=== PATIENT | male | born 2000 | race Asian ===

== ENCOUNTER 2023-12-26 10:29 | Emergency (ER) | payer MEDICAID, SELFPAY ==
[2023-12-26 10:30] VITALS: BMI 25.4
[2023-12-26 10:47] VITALS: BP 159/94; PULSE 91; RESP 18; TEMP 36.7; O2SAT 96; BMI 26.2
--- NOTE | 2023-12-26 10:47 | PD.EDRME ---
Rapid Medical Screening Exam RME Arrival date/time: 12/26/23 10:29 22-year-old male presents to the emergency department with complaint of generalized bodyaches nausea and vomiting abdominal burning ongoing x 1 week Chief Complaint: Abdominal Pain Time Seen by Provider: 12/26/23 10:32
[2023-12-26] MEDS: ONDANSETRON ODT 4 MG TABRAP PO (10:52)
[2023-12-26] MEDS: ACETAMINOPHEN 500 MG TABLET 1000 MG PO (10:53)
[2023-12-26] MEDS: FAMOTIDINE 20 MG TABLET PO (10:53)
[2023-12-26 11:33] LABS: Basophils # (Auto) 0.1 Thou/mm3 (0.0-0.2); Basophils % (Auto) 1 % (0-2.5); Eosinophils % (Auto) 0 % (0-10); Hematocrit 49.2 % (41.0-53.0); Hemoglobin 17.6 g/dL (13.5-16.0); Immature Granulocytes % (Auto) 2 % (0-0); Immature Granulocytes Auto 0.15 Thou/mm3 (0.00-0.00); Lymphocytes # (Auto) 1.7 Thou/mm3 (1.0-4.8); Lymphocytes % (Auto) 24 % (10-50); Mean Corpuscular HGB Conc 35.8 g/dl (31.0-37.0); Mean Corpuscular Hemoglobin 31.2 pg (25.0-35.0); Mean Corpuscular Volume 87 fL (80-100); Monocytes # (Auto) 0.8 Thou/mm3 (0.0-0.8); Monocytes % (Auto) 11 % (0-12); Neutrophils # (Auto) 4.2 Thou/mm3 (1.8-7.7); Neutrophils % (Auto) 61 % (37-80); Nucleated Red Blood Cell % 0 /100 WBC (0); Platelet Count 381 Thou/mm3 (140-440); RDW Standard Deviation 38.5 fL (35.1-43.9); Red Blood Count 5.65 Miln/mm3 (4.50-5.90); White Blood Count 6.9 Thou/mm3 (3.8-10.6)
[2023-12-26 11:52] LABS: Alanine Aminotransferase 32 U/L (10-49); Albumin, Serum 5.5 gm/dL (3.5-5.0); Albumin/Globulin Ratio 1.8 (1.2-2.2); Alkaline Phosphatase 75 U/L (46-116); Anion Gap 7 (7-16); Aspartate Amino Transferase 26 U/L (0-34); BUN/Creatinine Ratio 10 Ratio (12-20); Bilirubin,Total 1.6 mg/dL (0.3-1.2); Blood Urea Nitrogen 12 mg/dL (9-23); Calcium 10.6 mg/dL (8.3-10.6); Calcium (Corrected) 10.6 mg/dL (8.5-10.1); Carbon Dioxide 30.2 mMol/L (20.0-31.0); Chloride 98 mMol/L (98-107); Creatinine (Component) 1.2 mg/dL (0.6-1.3); Estimated Creatinine Clearance 104.2 mL/min (>60); Globulin 3.1 gm/dL (2.3-3.5); Glucose 111 mg/dL (74-106); Lipase 46 U/L (12-53); Osmolality,Calculated 270 (275-295); Potassium 3.9 mMol/L (3.4-5.1); Sodium 135 mMol/L (136-145); Total Protein 8.6 gm/dL (5.7-8.2); eGFR > 60 See Note
[2023-12-26 11:53] LABS: Collection Type, Urine Clean Catch; Squamous Epithelial Cell,Urine 0 /hpf (0-5)
[2023-12-26 12:16] LABS: Bacteria,Urine Rare; Bilirubin,Urine Negative (Negative); Blood,Urine Negative (Negative); Clarity,Urine Clear (Clear/Hazy); Color,Urine Yellow (Lt Yel-Yel); Culture Indicated,Urine Not Indicated; Glucose, Urine Negative (Negative); Ketones,Urine Trace (Negative); Leukocyte Esterase,Urine Negative (Negative); Nitrite,Urine Negative (Negative); PH,Urine 6.5 (5.0-7.0); Protein,Urine 1+ (Neg - Trace); RBC,Urine 4 /hpf (0-3); Specific Gravity,Urine 1.036 (1.001-1.035); Urobilinogen,Urine Negative mg/dL (0.0-1.0); WBC,Urine 1 /hpf (0-5)
[2023-12-26 12:34] LABS: Amphetamine/Methamp Scrn,U Negative (Negative); Barbiturate Screen,Urine Negative (Negative); Benzodiazepines Screen,Urine Negative (Negative); Benzoylecgonine Screen, Ur Negative (Negative); Fentanyl Screen,Urine Negative (Negative); Opiate Screen,Urine Negative (Negative); THC Screen,Urine Positive (Negative)
--- NOTE | 2023-12-26 12:37 | PD.EDADULT ---
ED General RME/HPI General Chief complaint: Abdominal Pain Stated complaint: VOMITING X1WK SHAKING, ABD PAIN ALSO Time Seen by Provider: 12/26/23 10:32 Arrival date/time: 12/26/23 10:29 CC: Epigastric pain with nausea vomiting diarrhea started this morning patient states onset was 3 to 4 days ago after eating chips and stuff like before night. Patient acknowledges that he had similar symptoms in 2020 had an EGD which showed some esophagitis without ulceration he followed up in [place] who said he had the option for surgery which she chose not to. The patient states this episode has lasted longer than the episodes these had in the interim between then and now. Patient denies chest pain shortness of breath. Patient is very flat affect, no direct eye contact. RME / HPI RME / HPI narrative: 12/26/23 10:29 22-year-old male presents to the emergency department with complaint of generalized bodyaches nausea and vomiting abdominal burning ongoing x 1 week Related Data Home Medications ?Medication ?Instructions ?Recorded ?Confirmed dicyclomine 20 mg tablet 20 mg PO Q6H PRN ABD PAIN 05/05/20 05/05/20 Previous Rx's ?Medication ?Instructions ?Recorded promethazine 25 mg tablet 25 mg PO HS #60 tabs 05/07/20 pantoprazole 40 mg tablet,delayed 40 mg PO QDAY 30 days #0 tabs 05/08/20 release famotidine 20 mg tablet 20 mg PO QDAY #30 tabs 12/26/23 Allergies Allergy/AdvReac Type Severity Reaction Status Date / Time No Known Allergies Allergy Verified 03/26/22 19:25 Review of Systems Review of Systems Narrative Review of Systems: GEN: No fever, no chills, no weight loss EYES: No discharge, no visual changes, no pain HEENT: No ear pain, no congestion, no sore throat PULM: No shortness of breath, no cough, no congestion CV: No chest pain, no dyspnea on exertion, no palpitations GI: No nausea, no vomiting, no diarrhea, + pain, no constipation : No frequency, no urgency, no dysuria MUSC/SKEL: No joint pain, no back pain SKIN: No rash PSYCH: No hallucinations, no depression HEME/LYMPH: No easy bleeding or bruising tendencies NEURO: No weakness, no headache Past Medical History Past Medical History NEUROLOGIC: Negative Cerebrovascular Accident, Alzheimer's Disease, Meningitis or Seizures CARDIAC: Negative Cardiac Disorders, Myocardial Infarction, Angina, Atherosclerotic Heart Disease or Congestive Heart Failure RESPIRATORY: Positive Asthma; Negative Chronic Obstructive Pulmonary Disease (COPD), Emphysema or Cystic Fibrosis GASTROINTESTINAL: Positive Gastrointestinal Disorders (abdominal pain, nausea, vomitting); Negative Hepatitis, Pancreatitis or Gastrointestinal Bleed GENITOURINARY: Positive Genitourinary Disorders (only has one kidney); Negative Renal Disease MUSCULOSKELETAL: Negative Muscular Dystrophy, Bone Cancer or Osteoporosis ENT: Negative Blind or Deafness ENDOCRINE: Negative Endocrine Disorders, Diabetes Mellitus Type 1 or Diabetes Mellitus Type 2 HEMATOLOGIC: Negative Sickle Cell Disease OTHER HISTORY: Negative Down Syndrome or Developmental Delay Social History SMOKING STATUS: Never smoker SUBSTANCE USE: marijuana (occ. ) ED Exam Narrative Physical exam: [General: Not in any acute distress Head normocephalic HEENT: Within acceptable limits Neck is supple nontender Chest equal chest rise nontender to palpation Respiratory: Clear to auscultation no wheezes crackles or rubs CV: Rate rhythm is regular no murmurs rubs or clicks Abdomen is soft, mild epigastric pain to palpation no reflexive guarding rebound tenderness. No pain in all other quadrants. Back: No CVA tenderness no spinous process tenderness from cervical spine thoracic and lumbar spine Skin: Intact no petechiae rash induration ulceration or crepitus Extremities: Moving all extremity against resistance cap refill less than 2 seconds neurosensory intact Neuro: Awake alert oriented x3 Glascow coma 15 no focal deficits] Course Course Course Narrative: Improvement in the pain after Maalox and lidocaine patient will be discharged home after lengthy discussion regarding eating habits, and what heartburn and gastritis are. Quality Measures none Orders Category Date Time Status Bedside COVID-19 Antigen Test NOW Care 12/26/23 10:45 Active Bedside Influenza A&B Antigen Test NOW Care 12/26/23 10:45 Completed Saline [Insert IV] NOW Care 12/26/23 12:36 Active US gall bladder Stat Exams 12/26/23 12:41 Taken CBC Stat Lab 12/26/23 11:05 Completed Comprehensive Metabolic Panel Stat Lab 12/26/23 11:05 Completed Drug Screen,Urine Stat Lab 12/26/23 11:38 Completed Lipase Stat Lab 12/26/23 11:05 Completed UA, C/S IF [Urinalysis, C/S if Indicated] Stat Lab 12/26/23 11:38 Completed Acetaminophen Tab [Tylenol ES Tab] Med 12/26/23 10:45 Discontinued 1,000 mg PO X1 ONE Famotidine Inj [Pepcid Inj] Med 12/26/23 12:36 Discontinued 20 mg IVP X1 ONE Famotidine [Pepcid] Med 12/26/23 10:45 Discontinued 20 mg PO X1 ONE Lidocaine 2% Viscous [Xylocaine 2% Viscous] Med 12/26/23 12:36 Discontinued 15 ml PO X1 ONE Ondansetron Odt [Zofran Odt] Med 12/26/23 10:45 Discontinued 4 mg PO X1 ONE Sodium Chloride 0.9% 1000 ml [Ns] 1,000 ml Med 12/26/23 12:36 Active IV 999 mls/hr mg Hyd/Al Hyd/Luma Susp [Maalox Susp] Med 12/26/23 12:36 Discontinued 30 ml PO X1 ONE Vital Signs Vital signs: Vital Signs Temperature 98.1 F 12/26/23 10:47 Pulse Rate 91 12/26/23 10:47 Respiratory Rate 18 12/26/23 10:47 Blood Pressure 159/94 H 12/26/23 10:47 Pulse Oximetry (%) 96 12/26/23 10:47 Oxygen Delivery Method Room Air 12/26/23 10:47 [facility] Patient data External records reviewed:: [facility] previous records Clinical information provided by:: patient Social determinants that could affect healthcare access:: none Patient has the following chronic illnesses:: Recurrent epigastric pain How is presenting disease/condition affected by chronic disease/condition?: exacerbated by Evaluation data The following diagnostics were reviewed and interpreted by me:: lab results Lab and/or radiology exams considered but not ordered:: CBC shows no leukocytosis there is a hemoconcentration no thrombocytopenia CMP shows no significant electrolyte imbalances renal impairment or transaminitis. T. bili is mildly elevated at 1.6. Lipase of 46 Urine is negative for urinary tract infection UDS is positive for marijuana. Ultrasound is negative for any acute finding on the gallbladder interpreted by me read by radiology Interpretation Summary: Gastritis Medications Medications considered but not ordered:: None Medication administrations:: Medication Administration History Sodium Chloride (Ns) 1,000 mls @ 999 mls/hr IV .Q1H1M ONE Stop: 12/26/23 13:36 Last Admin: 12/26/23 12:49 Dose: 999 mls/hr Documented By: DO Discontinued Medications Acetaminophen (Acetaminophen 500 Mg Tablet) 1,000 mg PO X1 ONE Stop: 12/26/23 10:46 Last Admin: 12/26/23 10:53 Dose: 1,000 mg Documented By: STEPHEN Al Hydrox/Mg Hydrox/Simethicone (Mg Hyd/Al Hyd/Luma (Maalox Reg) Susp 30 Ml Udc) 30 ml PO X1 ONE Stop: 12/26/23 12:37 Last Admin: 12/26/23 12:48 Dose: 30 ml Documented By: DO Famotidine (Famotidine 20 Mg Tablet) 20 mg PO X1 ONE Stop: 12/26/23 10:46 Last Admin: 12/26/23 10:53 Dose: 20 mg Documented By: STEPHEN Famotidine (Famotidine Inj 10 Mg/Ml Vial 2 Ml) 20 mg IVP X1 ONE Stop: 12/26/23 12:37 Last Admin: 12/26/23 12:46 Dose: 20 mg Documented By: DO Lidocaine HCl (Lidocaine Viscous 2% 15 Ml Udc) 15 ml PO X1 ONE Stop: 12/26/23 12:37 Last Admin: 12/26/23 12:48 Dose: 15 ml Documented By: DO Ondansetron HCl (Ondansetron Odt 4 Mg Tabrap) 4 mg PO X1 ONE; Protocol Stop: 12/26/23 10:46 Last Admin: 12/26/23 10:52 Dose: 4 mg Documented By: STEPHEN None Consultations Consultation(s) initiated? (list below): No Diagnosis Differential Diagnosis ED Complaint MDM: Gastritis pancreatitis cholelithiasis cholecystitis Most likely diagnosis given after review of the tests above:: Gastritis Admission Indicated Admission indicated?: not indicated Explain why admission is indicated or not indicated:: Stable for outpatient follow-up Admission Request Was there a request for admission?: No Disposition Plan Disposition Plan: Discharge Discharge Attestation Discharge Attestation: The patient and all family members were given an opportunity to ask questions and understood the discharge instructions. Discharge instructions specifically effects, indications for sooner follow up or return to the emergency department, and the expected course of current diagnosis. Patient condition: Stable Medical Decision Making Differential Diagnosis Differential Diagnosis: Gastritis pancreatitis cholelithiasis cholecystitis Lab Data 12/26/23 11:05 12/26/23 11:05 Labs: Lab Results 12/26/23 12/26/23 Range/Units 11:05 11:38 WBC 6.9 (3.8-10.6) Thou/mm3 RBC 5.65 (4.50-5.90) Miln/mm3 Hgb 17.6 H* (13.5-16.0) g/dL Hct 49.2 (41.0-53.0) % MCV 87 (80-100) fL MCH 31.2 (25.0-35.0) pg MCHC 35.8 (31.0-37.0) g/dl RDW Std Deviation 38.5 (35.1-43.9) fL Plt Count 381 (140-440) Thou/mm3 Neut % (Auto) 61 (37-80) % Lymph % (Auto) 24 (10-50) % [place] % (Auto) 11 (0-12) % Eos % (Auto) 0 (0-10) % Baso % (Auto) 1 (0-2.5) % Neut # (Auto) 4.2 (1.8-7.7) Thou/mm3 Lymph # (Auto) 1.7 (1.0-4.8) Thou/mm3 [place] # (Auto) 0.8 (0.0-0.8) Thou/mm3 Eos # (Auto) 0.0 (0.0-0.5) Thou/mm3 Baso # (Auto) 0.1 (0.0-0.2) Thou/mm3 Immature Gran # (Auto) 0.15 H (0.00-0.00) Thou/mm3 Absolute Nucleated RBC 0.00 (0.00-0.00) Thou/mm3 Immature Gran % 2 H (0-0) % Nucleated RBC % 0 (0) /100 WBC Sodium 135 L (136-145) mMol/L Potassium 3.9 (3.4-5.1) mMol/L Chloride 98 (98-107) mMol/L Carbon Dioxide 30.2 (20.0-31.0) mMol/L Anion Gap 7 (7-16) BUN 12 (9-23) mg/dL Creatinine 1.2 (0.6-1.3) mg/dL Estim Creat Clear Calc 104.2 (>60) mL/min eGFR > 60 (60 - ) See Note BUN/Creatinine Ratio 10 L (12-20) Ratio Glucose 111 H (74-106) mg/dL Calculated Osmolality 270 L (275-295) Calcium 10.6 (8.3-10.6) mg/dL Corrected Calcium 10.6 H (8.5-10.1) mg/dL Total Bilirubin 1.6 H (0.3-1.2) mg/dL AST 26 (0-34) U/L ALT 32 (10-49) U/L Alkaline Phosphatase 75 (46-116) U/L Total Protein 8.6 H (5.7-8.2) gm/dL Albumin 5.5 H (3.5-5.0) gm/dL Globulin 3.1 (2.3-3.5) gm/dL Albumin/Globulin Ratio 1.8 (1.2-2.2) Lipase 46 (12-53) U/L Ur Collection Type Clean Catch Urine Color Yellow (Lt Yel-Yel) Urine Clarity Clear (Clear/Hazy) Urine pH 6.5 (5.0-7.0) Ur Specific [place] 1.036 H (1.001-1.035) Urine Protein 1+ A (Neg - Trace) Urine Glucose (UA) Negative (Negative) Urine Ketones Trace (Negative) Urine Blood Negative (Negative) Urine Nitrite Negative (Negative) Urine Bilirubin Negative (Negative) Urine Urobilinogen (Auto) Negative (0.0-1.0) mg/dL Ur Leukocyte Esterase Negative (Negative) Urine RBC 4 H (0-3) /hpf Urine WBC 1 (0-5) /hpf Ur Squamous Epith Cells 0 (0-5) /hpf Urine Bacteria Rare (None) Ur Culture Indicated? Not Indicated Urine Opiates Screen Negative (Negative) Urine Fentanyl Screen Negative (Negative) Ur Barbiturates Screen Negative (Negative) U Amphetamin/Meth Scrn Negative (Negative) U Benzodiazepines Scrn Negative (Negative) U Cocaine Metab Screen Negative (Negative) U Marijuana (THC) Screen Positive A (Negative) Discharge Plan Plan Patient Disposition: HOME (Self Care) Patient condition on transfer: Stable Prescriptions/Referrals Prescriptions/Med Rec: New famotidine 20 mg tablet 20 mg PO QDAY Qty: 30 0RF No Action dicyclomine 20 mg Tablet 20 mg PO Q6H PRN (Reason: ABD PAIN) promethazine 25 mg Tablet 25 mg PO HS Qty: 60 0RF Rx Instructions: may take in AM if necessary. pantoprazole 40 mg Tablet,Delayed Release (Dr/Ec) 40 mg PO QDAY 30 Days Qty: 0 0RF Referrals: Jas Sewell MD [Primary Care Provider] - In 1 week Problem List Clinical Impression: Gastritis Patient/Caregiver Discharge Instructions Other Activity Instructions:: Stop using marijuana, do not eat any meals 2 hours before you go to sleep at night, small frequent meals during the day take the medication as prescribed try a bland diet for the next 7 to 10 days. Education Materials: ED Gastritis (Adult), Treating Gastritis, ED Diet, [place] (Adult) Print Language: [place] Stand Alone Forms: Lydia Award Info., Patient Portal Info Letter, Work/School Release PA/BUS INFO CONSULTANT Supervising Physician PA/BUS INFO CONSULTANT Supervising Physician: Jordan Dennis ENP
[2023-12-26 12:41] VITALS: BP 149/63; PULSE 64; RESP 19; TEMP 36.8; O2SAT 96
--- NOTE | 2023-12-26 12:41 | XR_ITS ---
Examination: Abdomen sonogram, Limited Date and time of exam: December 26, 2023 1253 hours INDICATIONS: Elevated total bilirubin on laboratory examination today with epigastric pain Technique: Real-time troncoso scale transabdominal sonographic images of the upper abdomen obtained. Findings: Normal gallbladder Normal common bile duct 0.3 cm Pancreatic head 2.5 cm Liver 13.9 cm fatty infiltration no focal liver lesions Normal hepatopedal portal venous flow Patent IVC IMPRESSION: Normal gallbladder, normal common bile duct Fatty liver
[2023-12-26] MEDS: FAMOTIDINE INJ 10 MG/ML VIAL 2 ML 20 MG IVP (12:46)
[2023-12-26] MEDS: MG HYD/AL HYD/SIME (Maalox Reg) SUSP 30 ML UDC PO (12:48)
[2023-12-26] MEDS: LIDOCAINE VISCOUS 2% 15 ML UDC PO (12:48)
[2023-12-26] MEDS: SODIUM CHLORIDE 0.9% 1000 ML 1,000 ML 999 ML IV (12:49)
--- NOTE | 2023-12-26 13:09 | PC.NURSE ---
PT BACK FROM [facility]
== END 2023-12-26 13:57 | disposition home or self-care (01) ==
PROVIDERS: Nurse Practitioner Primary Care; Emergency Provider Emergency Medicine; PCP Family Medicine
DX: K29.70 Gastritis, unspecified, without bleeding (principal)
CPT/HCPCS: 36415; 76705; 80053; 80307; 81001; 83690; 85025; 87400; 87811; 96372; 99284; J3490; J7030; Q0162; A9270

== ENCOUNTER 2024-07-08 10:49 | Emergency (ER) | payer MEDICAID, SELFPAY ==
[2024-07-08 10:58] VITALS: BP 143/90; PULSE 113; RESP 26; TEMP 36.7; O2SAT 99; BMI 24.1
--- NOTE | 2024-07-08 11:02 | EKG_ITS ---
[facility] Test Date: 2024-07-08 Pat Name: CLAY GARCIA Department: Room: - Gender: Male Fulfillment Representative: : 2000 Requested By: Ruddy Melendez (CIGARETTE TIPPER) Order Number: [id number] Reading MD: Ruddy Melendez (CIGARETTE TIPPER) Measurements Intervals [place] Rate: 108 P: -15 OR: 139 QRS: -1 QRSD: 80 T: 4 QT: 332 QTc: 446 Interpretive Statements SINUS TACHYCARDIA POSSIBLE LEFT ATRIAL ENLARGEMENT [-0.1mV P-WAVE IN V1/V2] POSSIBLE LEFT VENTRICULAR HYPERTROPHY [VOLTAGE CRITERIA PLUS LAE OR QRS WIDENING] NONSPECIFIC T-WAVE ABNORMALITY Compared to ECG 05/05/2020 17:32:57 Sinus rhythm no longer present T-wave abnormality still present /store/S0/[id number]
[2024-07-08 11:31] LABS: Basophils % (Auto) 0 % (0-2.5); Eosinophils % (Auto) 0 % (0-10); Hematocrit 48.6 % (41.0-53.0); Hemoglobin 17.3 g/dL (13.5-16.0); Immature Granulocytes % (Auto) 1 % (0-0); Immature Granulocytes Auto 0.06 Thou/mm3 (0.00-0.00); Lymphocytes # (Auto) 1.6 Thou/mm3 (1.0-4.8); Lymphocytes % (Auto) 17 % (10-50); Mean Corpuscular HGB Conc 35.6 g/dl (31.0-37.0); Mean Corpuscular Hemoglobin 31.5 pg (25.0-35.0); Mean Corpuscular Volume 88 fL (80-100); Monocytes # (Auto) 0.7 Thou/mm3 (0.0-0.8); Monocytes % (Auto) 7 % (0-12); Neutrophils # (Auto) 6.7 Thou/mm3 (1.8-7.7); Neutrophils % (Auto) 74 % (37-80); Nucleated Red Blood Cell % 0 /100 WBC (0); Platelet Count 358 Thou/mm3 (140-440)
[2024-07-08] MEDS: ONDANSETRON INJ 2 MG/ML INJ 2 ML 4 MG IVP (11:37)
[2024-07-08] MEDS: SODIUM CHLORIDE 0.9% 1000 ML 1,000 ML 999 ML IV (11:37)
--- NOTE | 2024-07-08 11:46 | PD.EDABDPN ---
ED Abdominal Pain RME/HPI General Chief Complaint: Abdominal Pain Stated complaint: VOMIT X 3 DAYS, DIZZY; FOOD POISONING , ABD PAIN Time seen by provider: 07/08/24 10:59 Arrival date/time: 07/08/24 10:49 23-year-old male with no known medical history presents to the emergency room with a chief complaint of vomiting, dizziness, left lower quadrant abdominal pain and constipation x 3 days. Source: patient Mode of arrival: ambulatory Limitations: no limitations Related Data Home Medications ?Medication ?Instructions ?Recorded ?Confirmed dicyclomine 20 mg tablet 20 mg PO Q6H PRN ABD PAIN 05/05/20 05/05/20 Previous Rx's ?Medication ?Instructions ?Recorded promethazine 25 mg tablet 25 mg PO HS #60 tabs 05/07/20 pantoprazole 40 mg tablet,delayed 40 mg PO QDAY 30 days #0 tabs 05/08/20 release famotidine 20 mg tablet 20 mg PO QDAY #30 tabs 12/26/23 docusate sodium 100 mg capsule 100 mg PO QDAY #14 caps 07/08/24 (Colace) lactulose 10 gram/15 mL oral 20 g (30 mL) PO BID PRN 07/08/24 solution constipation #237 mL Allergies Allergy/AdvReac Type Severity Reaction Status Date / Time No Known Allergies Allergy Verified 07/08/24 10:52 Review of Systems Review of Systems Systems Reviewed: All systems reviewed, normal except as documented Constitutional Constitutional: Reports system reviewed and no additional complaints, except as documented, Denies fatigue, Denies fever(s), Denies headache(s) and Denies weakness Eyes Eyes: Reports system reviewed and no additional complaints, except as documented, Denies blurry vision and Denies change in vision ENT Ears, Nose, Mouth, and Throat: Reports system reviewed and no additional complaints, except as documented, Denies otalgia, Denies headache(s), Denies nasal congestion, Denies throat swelling and Denies vertigo Cardiovascular Cardiovascular: Reports system reviewed and no additional complaints, except as documented, Denies chest pain, Denies dyspnea and Denies dyspnea on exertion Respiratory Respiratory: Reports system reviewed and no additional complaints, except as documented, Denies chest congestion, Denies cough, Denies dyspnea, Denies dyspnea on exertion and Denies wheezing Gastrointestinal Gastrointestinal: Reports system reviewed and no additional complaints, except as documented, Reports abdominal pain, Reports constipation, Reports cramping, Denies hematochezia, Denies loose stools, Reports nausea and Reports vomiting Genitourinary Genitourinary: Reports system reviewed and no additional complaints, except as documented, Denies dysuria and Denies hematuria Musculoskeletal Musculoskeletal: Reports system reviewed and no additional complaints, except as documented and Denies back pain Integumentary/Breasts Skin/Breast: Reports system reviewed and no additional complaints, except as documented and Denies wounds Neurologic Neurologic: Reports system reviewed and no additional complaints, except as documented, Denies confusion, Denies headache(s), Denies lack of coordination, Denies vertigo and Denies weakness Psychiatric Psychiatric: Reports system reviewed and no additional complaints, except as documented, Denies anxiety, Denies confusion, Denies depression, Denies paranoia, Denies suicidal ideation and Denies tactile hallucinations Endocrine Endocrine: Reports system reviewed and no additional complaints, except as documented and Denies fatigue Hematologic/Lymphatic Hematologic/Lymphatic: Reports system reviewed and no additional complaints, except as documented and Denies lymphadenopathy Allergic/Immunologic Allergic/Immunologic: Reports system reviewed and no additional complaints, except as documented, Denies throat swelling, Denies urticaria and Denies wheezing Past Medical History Past Medical History NEUROLOGIC: Negative Cerebrovascular Accident, Alzheimer's Disease, Meningitis or Seizures CARDIAC: Negative Cardiac Disorders, Myocardial Infarction, Angina, Atherosclerotic Heart Disease or Congestive Heart Failure RESPIRATORY: Positive Asthma; Negative Chronic Obstructive Pulmonary Disease (COPD), Emphysema or Cystic Fibrosis GASTROINTESTINAL: Positive Gastrointestinal Disorders and Gastroesophageal Reflux Disease; Negative Hepatitis, Pancreatitis or Gastrointestinal Bleed GENITOURINARY: Positive Genitourinary Disorders; Negative Renal Disease MUSCULOSKELETAL: Negative Muscular Dystrophy, Bone Cancer or Osteoporosis ENT: Negative Blind or Deafness ENDOCRINE: Negative Endocrine Disorders, Diabetes Mellitus Type 1 or Diabetes Mellitus Type 2 HEMATOLOGIC: Negative Sickle Cell Disease OTHER HISTORY: Negative Down Syndrome or Developmental Delay Social History SMOKING STATUS: Never smoker SUBSTANCE USE: marijuana (occ. ) ED Exam General Limitations: Present no limitations General appearance: Present alert and in no apparent distress Head Head exam: Present atraumatic Eye Eye exam: Present normal appearance, PERRL and EOMI ENT ENT exam: Present normal exam, normal oropharynx and mucous membranes moist Neck Neck exam: Present normal inspection, full ROM and trachea midline Chest Chest inspection: Present normal inspection and symmetric chest wall rise Respiratory Respiratory exam: Present normal lung sounds bilaterally Cardiovascular Cardiovascular exam: Present regular rate, normal rhythm and normal heart sounds Abdominal Exam Abdominal exam: Present soft and normal bowel sounds Abdominal tenderness: Present LLQ and mild Extremities Exam Extremities exam: Present normal inspection and full ROM Back Exam Back exam: Present normal inspection and full ROM Neurological Exam Neurological exam: Present alert, oriented X3 and CN II-XII intact Psychiatric Psychiatric exam: Present normal affect and normal mood Skin Skin exam: Present warm, dry, intact and normal color Course Quality Measures none Orders Category Date Time Status EKG (ED ONLY) *Do not use* NOW Care 07/08/24 11:02 Completed Insert IV NOW Care 07/08/24 11:[address] abdomen pelvis wo con Stat Exams 07/08/24 11:46 Stop Req EKG (ED Only) Stat Exams 07/08/24 11:02 Draft CBC Stat Lab 07/08/24 11:23 Completed Comprehensive Metabolic Panel Stat Lab 07/08/24 11:23 Completed Drug Screen,Urine Stat Lab 07/08/24 11:09 Ordered Lipase Stat Lab 07/08/24 11:23 Completed Troponin I Stat Lab 07/08/24 11:23 Completed UA, C/S IF [Urinalysis, C/S if Indicated] Stat Lab 07/08/24 11:02 Ordered Ondansetron Inj [Zofran Inj] Med 07/08/24 11:08 Discontinued 4 mg IVP X1 ONE Sodium Chloride 0.9% 1000 ml [Ns] 1,000 ml Med 07/08/24 11:08 Discontinued IV 999 mls/hr Vital Signs Vital signs: Vital Signs Temperature 98.1 F 07/08/24 10:58 Pulse Rate 113 H 07/08/24 10:58 Respiratory Rate 26 H 07/08/24 10:58 Blood Pressure 143/90 H 07/08/24 10:58 Pulse Oximetry (%) 99 07/08/24 10:58 Oxygen Delivery Method Room Air 07/08/24 10:58 O2 saturation 99% within normal limits Abdominal Pain MDM MDM Narrative MDM Narrative:: 23-year-old male with no known medical history presents to the emergency room with a chief complaint of vomiting, dizziness, left lower quadrant abdominal pain and constipation x 3 days. Patient is hemodynamically stable and in no apparent distress. Physical examination shows some generalized diffuse abdominal pain and tenderness. Patient was evaluated there is no right lower quadrant or right upper quadrant abdominal tenderness. There is no leukocytosis. Patient states he is feeling significantly better would like to get discharged. I spoke to the patient that if his pain still continues he can return to the emergency room for a CT scan of his abdomen. Patient was discharged and educated to follow-up with primary care provider in the next 24 to 48 hours and return to the emergency room for any evidence of worsening signs or symptoms Patient data External records reviewed:: [facility] previous records Clinical information provided by:: patient Social determinants that could affect healthcare access:: none Patient has the following chronic illnesses:: No chronic illness How is presenting disease/condition affected by chronic disease/condition?: no chronic disease Evaluation data The following diagnostics were reviewed and interpreted by me:: lab results and radiology exam(s) Lab and/or radiology exams considered but not ordered:: Labs and radiology exams considered and ordered Interpretation Summary: C N/A Medications / Prescriptions Medications or Prescriptions considered but not ordered:: Medication given Medication administrations:: Medication Administration History Discontinued Medications Sodium Chloride (Ns) 1,000 mls @ 999 mls/hr IV .Q1H1M ONE Stop: 07/08/24 12:08 Last Admin: 07/08/24 11:37 Dose: 999 mls/hr Documented By: EF Ondansetron HCl (Ondansetron Inj 2 Mg/Ml Inj 2 Ml) 4 mg IVP X1 ONE; Protocol Stop: 07/08/24 11:09 Last Admin: 07/08/24 11:37 Dose: 4 mg Documented By: EF Medication given Consultations Consultation(s) initiated? (list below): No Diagnosis Differential diagnosis abdominal pain: abdominal pain, constipation, diverticulitis, gastroenteritis and small bowel obstruction Most likely diagnosis given after review of the tests above:: Gastroenteritis Admission Indicated Admission indicated?: not indicated Admission Request Was there a request for admission?: No Disposition Plan Disposition Plan: Discharge Discharge Attestation Discharge Attestation: The patient and all family members were given an opportunity to ask questions and understood the discharge instructions. Discharge instructions specifically effects, indications for sooner follow up or return to the emergency department, and the expected course of current diagnosis. Patient condition: Stable Discharge Plan Plan Patient Disposition: HOME (Self Care) Discharge Disposition comment: Stable Prescriptions/Referrals Prescriptions/Med Rec: New docusate sodium [Colace] 100 mg capsule 100 mg PO QDAY Qty: 14 0RF lactulose 10 gram/15 mL solution 20 g PO BID PRN (Reason: constipation) Qty: 237 0RF No Action dicyclomine 20 mg Tablet 20 mg PO Q6H PRN (Reason: ABD PAIN) promethazine 25 mg Tablet 25 mg PO HS Qty: 60 0RF Rx Instructions: may take in AM if necessary. pantoprazole 40 mg Tablet,Delayed Release (Dr/Ec) 40 mg PO QDAY 30 Days Qty: 0 0RF famotidine 20 mg tablet 20 mg PO QDAY Qty: 30 0RF Referrals: Feng Zimmer MD [Primary Care Provider] - In 1 week Problem List Clinical Impression: Gastroenteritis, Constipation Patient/Caregiver Discharge Instructions Education Materials: ED Gastroenteritis, Noninfectious Additional Instructions: Please follow-up with your primary care provider in the next 24 to 48 hours For any evidence of worsening signs or symptoms return to the emergency room immediately Print Language: Lao Stand Alone Forms: Lydia Award Info., Work/School Release, Patient Portal Info Letter PA/MELONY Supervising Physician PA/MELONY Supervising Physician: Dr Correa
[2024-07-08 11:59] LABS: Alanine Aminotransferase 27 U/L (10-49); Albumin, Serum 5.6 gm/dL (3.5-5.0); Albumin/Globulin Ratio 1.8 (1.2-2.2); Alkaline Phosphatase 72 U/L (46-116); Anion Gap 21 (7-16); Aspartate Amino Transferase 33 U/L (0-34); BUN/Creatinine Ratio 6 Ratio (12-20); Bilirubin,Total 1.3 mg/dL (0.3-1.2); Blood Urea Nitrogen 7 mg/dL (9-23); Calcium 10.8 mg/dL (8.3-10.6); Calcium (Corrected) 10.8 mg/dL (8.5-10.1); Carbon Dioxide 20.5 mMol/L (20.0-31.0); Chloride 95 mMol/L (98-107); Creatinine (Component) 1.1 mg/dL (0.6-1.3); Estimated Creatinine Clearance 112.7 mL/min (>60); Globulin 3.1 gm/dL (2.3-3.5); Glucose 97 mg/dL (74-106); Osmolality,Calculated 269 (275-295); Potassium 3.6 mMol/L (3.4-5.1); Sodium 136 mMol/L (136-145); Total Protein 8.7 gm/dL (5.7-8.2); Troponin I < 0.002 ng/mL (0.0-0.045); eGFR > 60 See Note
[2024-07-08 12:09] LABS: Lipase 45 U/L (12-53)
[2024-07-08 12:59] VITALS: BP 153/90; PULSE 96; RESP 16; O2SAT 100
== END 2024-07-08 13:00 | disposition home or self-care (01) ==
PROVIDERS: Nurse Practitioner Primary Care; Emergency Provider Emergency Medicine; PCP Family Medicine
DX: K52.9 Noninfective gastroenteritis and colitis, unspecified (principal); K59.00 Constipation, unspecified; R42 Dizziness and giddiness
CPT/HCPCS: 36415; 80053; 80307; 81001; 83690; 84484; 85025; 93005; 96361; 96374; 99284; J2405; J7030

== ENCOUNTER 2025-01-25 14:13 | Emergency (ER) | payer MEDICAID, SELFPAY ==
--- NOTE | 2025-01-25 14:49 | PC.NURSE ---
Pt did not answer when name was called in the lobby and was not found outside.
--- NOTE | 2025-01-25 15:24 | PD.EDADDENDU ---
Emergency Room Addendum Addendum Narrative: When I looked for the patient to start my evaluation, I was told the patient eloped. Jonas Nogueira MD
== END 2025-01-25 15:53 | disposition left against medical advice (07) ==
PROVIDERS: Emergency Provider Emergency Medicine
DX: Z53.21 Procedure and treatment not carried out due to patient leaving prior to being seen by health care provider (principal)
CPT/HCPCS: 99281

== ENCOUNTER 2025-01-31 10:18 | Emergency (ER) | payer MEDICAID, SELFPAY ==
[2025-01-31 10:19] VITALS: BMI 22.4
--- NOTE | 2025-01-31 11:13 | XR_ITS ---
Examination: CT abdomen and pelvis without contrast. Coronal 3-D reconstructions. Sagittal 2-D reconstructions. Date and time of exam: 01/31/2025 at 11:24 a.m. CTDI: vol (mGy): 6.21 DLP: (mGycm): 351 INDICATION: Generalized abdominal pain history of intestinal problem Technique: Axial images of the abdomen have been obtained, 3 mm slice thickness Intravenous contrast material has not been administered. Low dose protocols were performed. One or more of the following dose reduction techniques were used; automated exposure control, adjustment of the mA and/or KV according to patient size, use of iterative reconstruction technique. Findings: Lower lungs are clear. No significant abnormalities are seen anywhere in the bones. 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 Right kidney otherwise has a normal appearance. On this noncontrast study, the liver gallbladder spleen pancreas and adrenal glands appear normal. The para-aortic region appears normal. In the small bowel, the mucosal fold patterns and bowel wall appear normal. There is no dilatation of the small bowel loops. The entire colon appears all right. It is possible that I can visualize a normal appendix deep in the right lower quadrant extending into the right upper pelvic region. However I do not see any evidence of appendicitis. In the pelvis there is a calcified phlebolith on the left. No calculi are seen in the ureters. IMPRESSION: 1. 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 2. In all other respects this study is otherwise normal
[2025-01-31 11:15] VITALS: BP 148/100; PULSE 85; RESP 18; TEMP 36.6; O2SAT 97; BMI 22.4
--- NOTE | 2025-01-31 11:37 | PD.EDRME ---
Rapid Medical Screening Exam [facility] Arrival date/time: 01/31/25 10:18 24-year-old male with no known medical history presents to the emergency room with a chief complaint of vomiting, abdominal pain, constipation x 5 days I have greeted and performed a focused initial assessment of this patient. A comprehensive ED assessment and evaluation of the patient, analysis of all test results, and completion of the medical decision making process will be conducted by additional ED providers. Chief Complaint: Abdominal Pain Time Seen by Provider: 01/31/25 11:13 Vital signs: Vital Signs Temperature 97.8 F 01/31/25 11:15 Pulse Rate 85 01/31/25 11:15 Respiratory Rate 18 01/31/25 11:15 Blood Pressure 148/100 H 01/31/25 11:15 Pulse Oximetry (%) 97 01/31/25 11:15 Oxygen Delivery Method Room Air 01/31/25 11:15 Vital signs reviewed by provider: Yes Exam: Tenderness to the epigastric area of the patient's abdomen Clear bilateral lung sounds Clinical Impression: Bowel obstruction/gastroenteritis/food poisoning
[2025-01-31] MEDS: MG HYD/AL HYD/SIME (Maalox Reg) SUSP 30 ML UDC PO (11:38)
[2025-01-31] MEDS: ONDANSETRON ODT 4 MG TABRAP PO (11:39)
[2025-01-31 12:56] LABS: Basophils # (Auto) 0.1 Thou/mm3 (0.0-0.2); Basophils % (Auto) 1 % (0-2.5); Eosinophils # (Auto) 0.0 Thou/mm3 (0.0-0.5); Eosinophils % (Auto) 0 % (0-10); Hematocrit 50.4 % (41.0-53.0); Hemoglobin 17.4 g/dL (13.5-16.0); Immature Granulocytes Auto 0.04 Thou/mm3 (0.00-0.00); Lymphocytes # (Auto) 1.5 Thou/mm3 (1.0-4.8); Lymphocytes % (Auto) 23 % (10-50); Mean Corpuscular HGB Conc 34.5 g/dl (31.0-37.0); Mean Corpuscular Hemoglobin 31.1 pg (25.0-35.0); Mean Corpuscular Volume 90 fL (80-100); Monocytes # (Auto) 0.8 Thou/mm3 (0.0-0.8); Monocytes % (Auto) 13 % (0-12); Neutrophils # (Auto) 3.9 Thou/mm3 (1.8-7.7); Neutrophils % (Auto) 62 % (37-80); Nucleated Red Blood Cell # 0.00 Thou/mm3 (0.00-0.00); Nucleated Red Blood Cell % 0 /100 WBC (0); Platelet Count 325 Thou/mm3 (140-440); RDW Standard Deviation 40.6 fL (35.1-43.9); Red Blood Count 5.60 Miln/mm3 (4.50-5.90); White Blood Count 6.3 Thou/mm3 (3.8-10.6)
[2025-01-31 13:07] LABS: Alanine Aminotransferase 25 U/L (10-49); Albumin, Serum 5.5 gm/dL (3.5-5.0); Albumin/Globulin Ratio 1.8 (1.2-2.2); Alkaline Phosphatase 64 U/L (46-116); Anion Gap 15 (7-16); Aspartate Amino Transferase 31 U/L (0-34); BUN/Creatinine Ratio 8 Ratio (12-20); Bilirubin,Total 0.9 mg/dL (0.3-1.2); Blood Urea Nitrogen 9 mg/dL (9-23); Calcium 10.1 mg/dL (8.3-10.6); Calcium (Corrected) 10.1 mg/dL (8.5-10.1); Carbon Dioxide 27.3 mMol/L (20.0-31.0); Chloride 101 mMol/L (98-107); Creatinine (Component) 1.1 mg/dL (0.6-1.3); Estimated Creatinine Clearance 111.0 mL/min (>60); Globulin 3.1 gm/dL (2.3-3.5); Glucose 105 mg/dL (74-106); Lipase 37 U/L (12-53); Osmolality,Calculated 283 (275-295); Potassium 3.8 mMol/L (3.4-5.1); Sodium 143 mMol/L (136-145); Total Protein 8.6 gm/dL (5.7-8.2); eGFR > 60 See Note
--- NOTE | 2025-01-31 15:34 | PC.NURSE ---
CALLED FROM [facility] AND NO ANSWER
--- NOTE | 2025-01-31 15:47 | PC.NURSE ---
CALLED FROM [facility] AND NO ANSWER
--- NOTE | 2025-01-31 15:56 | PC.NURSE ---
CALLED FROM [facility] AND NO ANSWER
== END 2025-01-31 15:57 | disposition left against medical advice (07) ==
PROVIDERS: Emergency Provider Nurse Practitioner Family
DX: K59.00 Constipation, unspecified (principal); R11.10 Vomiting, unspecified; Z53.21 Procedure and treatment not carried out due to patient leaving prior to being seen by health care provider
CPT/HCPCS: 36415; 74176; 80053; 80307; 81001; 83690; 85025; 87086; 99283; Q0162; A9270